=== PATIENT | female | born 1950 | race Caucasian/White ===

== ENCOUNTER 2016-12-31 23:33 | Emergency (ER) | payer BC ==
--- NOTE | 2017-01-01 00:52 | ED ---
Lower Extremity Injury HPI - General Chief Complaint: Extremity Injury, Lower Stated Complaint: knee pain Time Seen by Provider: 12/31/16 23:55 Source: patient Mode of arrival: wheelchair Limitations: no limitations - History of Present Illness Initial Comments: Patient is a 66-year-old female who presents with a chief complaint of right knee pain. She states that she is moving from [place], and this morning she slipped down some stairs landing on her tailbone and slid down a few stairs. She states that her heel hit a couple steps on the way down. Initially the patient did not have much pain, she states she was able to get up, walk, and help her family move. On her drive here today, her knee began to get tight and painful. Patient states that currently she can still walk however it is more painful. Patient has known arthritic disease of the right knee. She has received steroid injections for this in the past. Patient states that her pain is achy in nature, exacerbated by movement and ambulation. It is alleviated by rest. Patient has no other complaints at this time. MD Complaint: knee injury Onset/Timin -: days(s) Injury: Knee: Right Place: home Severity: moderate Improves With: rest Worsens With: weight bearing, movement, palpation Context: fall Associated Symptoms: swelling, ambulatory - Related Data Home Medications Medication Instructions Recorded Confirmed Lisinopril-Hctz 10-12.5 mg 1 tab PO DAILY 12/31/16 12/31/16 [Zestoretic 10-12.5] Sertraline [Zoloft] 50 mg PO DAILY 12/31/16 12/31/16 Zolpidem [Ambien] 5 mg PO HS PRN 12/31/16 12/31/16 traZODone HCL [Desyrel] 50 mg PO HS 12/31/16 12/31/16 Previous Rx's Medication Instructions Recorded Diazepam [Valium] 2 - 4 mg PO HS #6 tab 01/01/17 Lidocaine 5% Patch [Lidoderm] 1 patch TOPICAL DAILY #20 patch 01/01/17 Allergies Allergy/AdvReac Type Severity Reaction Status Date / Time No Known Allergies Allergy Verified 12/31/16 23:41 Review of Systems ROS Statement: Those systems with pertinent positive or pertinent negative responses have been documented in the HPI. ROS Other: All systems not noted in ROS Statement are negative. Constitutional: Denies: fever, chills Eyes: Denies: vision change ENT: Denies: ear pain, throat pain Respiratory: Denies: cough, dyspnea Cardiovascular: Denies: chest pain, palpitations Endocrine: Denies: fatigue Gastrointestinal: Denies: abdominal pain, nausea, vomiting Genitourinary: Denies: dysuria Musculoskeletal: Denies: back pain Skin: Denies: rash Neurological: Denies: headache Past Medical History Past Medical History: Hypertension History of Any Multi-Drug Resistant Organisms: MRSA Date of last positivie culture/infection: 2007 MDRO Source:: breast Past Surgical History: Breast Surgery Additional Past Surgical History / Comment(s): mastectomy Past Psychological History: No Psychological Hx Reported Smoking Status: Former smoker Past Alcohol Use History: None Reported Past Drug Use History: None Reported General Exam Limitations: no limitations General appearance: alert, in no apparent distress Head exam: Present: atraumatic, normocephalic Eye exam: Present: normal appearance, PERRL ENT exam: Present: normal exam, normal oropharynx, mucous membranes moist Neck exam: Present: normal inspection Respiratory exam: Present: normal lung sounds bilaterally. Absent: respiratory distress Cardiovascular Exam: Present: regular rate, normal rhythm, normal heart sounds GI/Abdominal exam: Present: soft. Absent: distended, tenderness Rectal exam: Present: deferred Extremities exam: Present: other Right Knee exam: Present: tenderness, swelling, pain/laxity with varus Neurovascular tendon exam: Present: no vascular compromise Back exam: Present: normal inspection Neurological exam: Present: alert, oriented X3 Psychiatric exam: Present: normal affect, normal mood Skin exam: Present: warm, dry, intact Course Vital Signs 12/31/16 23:36 Temperature 98.4 F Pulse Rate 66 Respiratory 18 Rate Blood Pressure 130/70 O2 Sat by Pulse 99 Oximetry Medical Decision Making - Medical Decision Making Patient presents with chief complaint of right knee injury after falling downstairs this morning. Physical exam shows lateral joint line tenderness. We 'll send patient for x-rays though the patient for fracture is low. Patient has a history of osteoarthritis of the right knee, likely adding to pain today. X-rays of the right knee shows a suprapatellar joint effusion, and degenerative joint disease. No acute fractures are identified. Patient will be prescribed lidocaine patches, and Valium for muscle relaxation. Patient instructed to keep her knee mobile, with slight range of motion exercises. She is instructed to return to the emergency department if she has worsening of her symptoms, or developed new symptoms. Further she is instructed to follow-up with her primary care doctor and orthopedic surgery as needed. Disposition Clinical Impression: Knee pain, Suprapatellar bursitis of right knee Disposition: HOME SELF-CARE Condition: Good Instructions: Knee Sprain (ED) Prescriptions: Diazepam [Valium] 2 - 4 mg PO HS #6 tab Lidocaine 5% Patch [Lidoderm] 1 patch TOPICAL DAILY #20 patch Referrals: Nonstaff,Physician [Primary Care Provider] - 1-2 days
--- NOTE | 2017-01-01 00:59 | XR ---
EXAM: XR Right Knee, 3 views CLINICAL HISTORY: Reason: Pain TECHNIQUE: Three views of the right knee. COMPARISON: No relevant prior studies available. FINDINGS: Bones/joints: Joint space narrowing of the medial tibiofemoral space and marginal osteophytes. No acute fracture or destructive bony lesion. Soft tissues: Suprapatellar bursa dissection which may reflect joint effusion. IMPRESSION: 1. Degenerative changes. 2. Suprapatellar bursa dissection which may reflect joint effusion.
[2017-01-01 01:24] VITALS: BP 126/75; PULSE 57; RESP 16; TEMP 98
== END 2017-01-01 01:24 | disposition home or self-care (01) ==
LOC: EC 23:33
DX: M70.51 Other bursitis of knee, right knee (principal); M17.11 Unilateral primary osteoarthritis, right knee; I10 Essential (primary) hypertension; Z87.891 Personal history of nicotine dependence; Z86.14 Personal history of Methicillin resistant Staphylococcus aureus infection; Z79.899 Other long term (current) drug therapy; W10.9XXA Fall (on) (from) unspecified stairs and steps, initial encounter
CPT/HCPCS: 99283